=== PATIENT | female | born 1990 | race Two or more races ===

== ENCOUNTER 2019-04-15 11:08 | Inpatient (IN) | payer OTHER ==
[~2019-04-15] VITALS: Ht 160 cm; Wt 105.4 kg
[~2019-04-15 11:08] MED LIST: PREN-93 PO
[2019-04-15 11:27] VITALS: BP 143/95; Ht 160 cm; Wt 105.4 kg
--- NOTE | 2019-04-15 12:38 | TRIAGE ---
OB Triage Datetime Report Generated by CPN: 04/15/2019 12:38 Datetime: 04/15/2019 11:49 Comments: us at bedside Datetime: 04/15/2019 11:12 Stage of : OB Triage Assessment Type: Triage Maternal Assessment Level of Consciousness: Fully Conscious DTR's/Clonus: DTRs 2+; No Clonus Headache: Denies Blurred Vision: Yes (Annotations: SEES KHAN POINTS ) Respiratory Effort: Unlabored; Regular Rhythm; Equal Expansion Breath Sounds, Left: Clear and Equal Breath Sounds, Right: Clear and Equal Nausea/Vomiting: Denies RUQ Epigastric Pain: Denies Lower Extremities Edema: Bilateral Lower Extremities Degree: 3+ Upper Extremities Edema: None Degree: None Facial Edema: None Fall Risk Assessment History of Falling: (0) No Secondary Diagnosis: (0) No Ambulatory Aid: (0) Bedrest/Nurse Assist IV Therapy: (0) No Gait: (0) Normal/Bedrest/Immobile Mental Status: (0) Oriented to Own Ability Fall Score: 0 Fall Risk Score Definition: No Risk: No action required Monitor Mode: External Heart Rate Monitor Mode: External US Pain Assessment Pain Scale: 5 Pain Presence: Intermittent Pain Type: Ache Pain Location: Other (Annotations: PELVIS ) Datetime: 04/15/2019 11:11 Time of Arrival: 04/15/2019 11:05 EGA: 38.1 Arrived By: Ambulatory Arrived From: Dr. Roca Chief Complaint: SENT FROM CLINIC FOR ELEVATD BLOOD PRESSURE Movement: Present Contractions: Denies/Absent Rupture of Membranes: Denies Vaginal Bleeding: None Vaginal Discharge: Denies Recent Sexual Intercouse: Denies Abdominal Trauma: Not Applicable Patient Complaints: Other Time Provider Notified: 04/15/2019 12:30 Provider Notified: DR. ROMERO Initial Plan: EFM, PIH WORK UP Datetime: 12/24/2018 15:10 Stage of : OB Triage Labor Evaluation Frequency: NONE Monitor Mode: External Quality: Mild Resting Tone Candor: Relaxed Heart Rate Monitor Mode: External US (Annotations: FHT'S OBTAINED IN THE 130'S) Vaginal Exam Membrane Status: Intact Vaginal Bleeding: None Datetime: 12/24/2018 14:33 EGA: 22.1 Datetime: 12/24/2018 14:24 Assessment Type: Triage Maternal Assessment Level of Consciousness: Fully Conscious DTR's/Clonus: DTRs 2+; No Clonus Headache: Denies Blurred Vision: No Respiratory Effort: Unlabored; Regular Rhythm; Equal Expansion Breath Sounds, Left: Clear and Equal Breath Sounds, Right: Clear and Equal Nausea/Vomiting: Denies RUQ Epigastric Pain: Denies Lower Extremities Edema: None Degree: None Upper Extremities Edema: None Degree: None Facial Edema: None Fall Risk Assessment History of Falling: (0) No Secondary Diagnosis: (0) No Ambulatory Aid: (0) Bedrest/Nurse Assist IV Therapy: (0) No Gait: (0) Normal/Bedrest/Immobile Mental Status: (0) Oriented to Own Ability Fall Score: 0 Fall Risk Score Definition: No Risk: No action required Datetime: 12/24/2018 14:23 Time of Arrival: 12/24/2018 14:00 EGA: 21.3 Arrived By: Ambulatory Arrived From: Home Chief Complaint: pt. here c/o DIZZINESS, SOB, AND TINGLING OF LLE. Movement: Present Contractions: Denies/Absent Rupture of Membranes: Denies Vaginal Bleeding: None Vaginal Discharge: Denies Recent Sexual Intercouse: Denies Abdominal Trauma: Not Applicable Patient Complaints: None Time Provider Notified: 12/24/2018 14:36 Provider Notified: HEATHER Initial Plan: CVL/SUSHMA Datetime: 12/24/2018 14:20 Monitor Mode: External Heart Rate Monitor Mode: External US Comments: FHT'S OBTAINED IN THE 130'S.
[2019-04-15] MEDS ORDERED: METHYLERGONOVINE 0.2 MG INJ IM PRN (13:00)
[2019-04-15] MEDS ORDERED: CARBOPROST 250 MCG INJ IM PRN (13:00)
[2019-04-15] MEDS ORDERED: OXYTOCIN 30 UNITS/LR 500 ML IV PRN (13:00)
[2019-04-15] MEDS ORDERED: MISOPROSTOL 200 MCG TAB PR PRN (13:00)
[2019-04-15] MEDS ORDERED: OXYTOCIN 30 UNITS/LR 500 ML IV SCH ×2 (13:00)
[2019-04-15] MEDS ORDERED: LIDOCAINE 1% (MPF) 30 ML INJ INJ PRN (13:00)
[2019-04-15] MEDS ORDERED: BUTORPHANOL 2 MG INJ IV PRN (13:00)
[2019-04-15] MEDS: LACTATED RINGER'S 1,000 ML IV SCH ×2 (13:28→18:29)
[2019-04-15] MEDS ORDERED: hydrALAzine 20 MG INJ IV PRN (13:30)
[2019-04-15] MEDS ORDERED: LABETALOL HCL 20MG INJ IV ONE (13:30)
[2019-04-15] MEDS ORDERED: LABETALOL HCL 20MG INJ IV PRN ×2 (13:30)
[2019-04-15] MEDS: MISOPROSTOL 50 MCG CAPSULE PO SCH ×3 (13:55→22:29)
--- NOTE | 2019-04-15 22:58 | HP ---
Date/Time of Note Date/Time of Note DATE: 04/15/19 TIME: 22:56 OB - History Hx of Present Free Text/Dictation 28 YO with IUP at 38 weeks with EDC 04/28/2019 who reported to L&D due to elevated BP and headache. she denies visual changes or RUQ pain. she is admitted for IOL. Ultrasounds: Normal mid trimester US Obstetrical Complications: Gestational Hypertension Medical Complications: None Past Family/Social History * Past Medical, Surgical, Family and Obstetric Histories reviewed from chart. OB Admission Exam Vital Signs Vital Signs Vital Signs Date Temp Pulse Resp B/P (MAP) Pulse Ox O2 O2 Flow FiO2 Time Delivery Rate 04/15/19 98.0 143/95 11:27 (111) Physical Exam HEENT: WNL Heart: Rhythm Normal Lungs: Clear, Equal Abdomen: WNL Extremities: Normal Reflexes: Normal Cervical Dilatation: Fingertip Last 72 hours Lab Results CBC & BMP 04/15/19 11:22 Liver Function Test 04/15/19 11:22 Alanine Aminotransferase (ALT/SGPT) 18 Albumin 3.3 Alkaline Phosphatase 204 H Aspartate Amino Transf (AST/SGOT) 20 Direct Bilirubin 0.00 Total Protein 6.5 OB Assessment/Plan Reason for admission: other (IUP at 38 weeks with Preeclampsia ) Induction Method: per Misoprostol Protocol NANCY ROMERO MD April 15, 2019 22:58
[2019-04-16] MEDS: LACTATED RINGER'S 1,000 ML IV SCH ×3 (02:50→19:16)
[2019-04-16] MEDS: MISOPROSTOL 50 MCG CAPSULE PO SCH ×4 (06:16→14:04)
--- NOTE | 2019-04-16 15:02 | QN ---
Documentation Comment here for IOL for preeclampsia just had 6th dose of Cytotec on my exam she is finger tip and high NANCY ROMERO MD April 16, 2019 15:01
[2019-04-16] MEDS ORDERED: OXYTOCIN 30 UNITS/LR 500 ML IV SCH (18:30)
[2019-04-17] MEDS: LACTATED RINGER'S 1,000 ML IV SCH ×2 (03:20→12:02)
[2019-04-17] MEDS ORDERED: LABETALOL HCL 20MG INJ ONE ×2 (08:39→12:06)
--- NOTE | 2019-04-17 08:48 | QN ---
Documentation Comment NST reassuring AROM: Clear Cervix is 1-2 cm NANCY ROMERO MD April 17, 2019 08:48
--- NOTE | 2019-04-17 10:42 | PREAC ---
Date/Time of Note Date/Time of Note DATE: 04/17/19 TIME: 10:41 Anesthesia Eval and Record Evaluation Time Pre-Procedure Interview DATE: 04/17/19 TIME: 10:41 Age 28 Sex female NPO: 8 hrs Preoperative diagnosis Planned procedure labor epidural Past Medical History Past Medical History: Includes Cardio: HTN GI: Morbid obesity Surgery & Anesthesia Issues No known issue Meds Anticoagulation: No Beta Ewelina within 24 hr: No Reason Beta Ewelina not given: Pt. not on B-Ewelina Reported Medications Vit No.124/Iron/FA ( Vitamin Tablet) 1 Each Tablet, 1 EACH PO DAILY, TAB 12/24/18 Current Medications Lactated Ringer's 1,000 ml @ 125 mls/hr Q8H IV Last administered on 04/17/19at 03:20; Admin Dose 125 MLS/HR; Start 04/15/19 at 12:39 Butorphanol Tartrate (Stadol) 2 mg Q2H PRN IV .PAIN SCALE 6-10; Start 04/15/19 at 13:00 Lidocaine (Xylocaine 1% (Mpf)) 30 ml ONCE PRN INJ .EPISIOTOMY; Start 04/15/19 at 13:00 Oxytocin/Lactated Ringer's 500 ml @ 500 mls/hr ONCE POST IV ; Start 04/15/19 at 13:00 Oxytocin/Lactated Ringer's 500 ml @ 125 mls/hr POST IV ; Start 04/15/19 at 13:00 Oxytocin/Lactated Ringer's 500 ml @ 0 mls/hr ONCE PRN IV .VAGINAL BLEEDING; Start 04/15/19 at 13:00 Methylergonovine Maleate (Methergine) 0.2 mg ONCE PRN IM .VAGINAL BLEEDING; Start 04/15/19 at 13:00 Carboprost Tromethamine (Hemabate) 250 mcg ONCE PRN IM .VAGINAL BLEEDING; Start 04/15/19 at 13:00 Misoprostol (Cytotec) 1,000 mcg ONCE PRN HI .VAGINAL BLEEDING; Start 04/15/19 at 13:00 Misoprostol (Cytotec 50 Mcg Capsule) 50 mcg Q4 PO Last administered on 04/16/19at 14:04; Admin Dose 50 MCG; Start 04/15/19 at 14:00 Oxytocin/Lactated Ringer's 500 ml @ 0 mls/hr FOR INDUCTION IV Last administered on 04/16/19at 20:24; Admin Dose 1 MLS/HR; Start 04/16/19 at 18:30 Meds reviewed: Yes Allergies Coded Allergies: No Known Allergy (Unverified , 12/24/18) Allergies Reviewed: Yes Labs/Studies Labs Reviewed: Reviewed by anesthesiologist Result Diagram: 04/15/19 1122 04/15/19 1122 test: Positive Pre-procedure Exam Last vitals Vital Signs Date Temp Pulse Resp B/P (MAP) Pulse Ox O2 O2 Flow FiO2 Time Delivery Rate 04/15/19 98.0 143/95 11:27 (111) Airway: Adequate mouth opening, Adequate thyromental dist Mallampati: Mallampati II Teeth: Normal Lung: Normal Heart: Normal ASA Physical Status ASA physical status: 2 Emergency: None Planned Anesthetic Neuraxial: Epidural Pre-operative Attestations Prior to commencing anesthesia and surgery, the patient was re-evaluated, there was verification of: *The patient's identity *The results of appropriate recent lab work and preoperative vital signs *The above evaluation not changing prior to induction *Anesthetic plan, risk benefits, alternative and complications discussed with patient/family; questions answered; patient/family understands, accepts and wishes to proceed. JETHRO PALOMO April 17, 2019 10:42
[2019-04-17] MEDS ORDERED: HYDROmorphONE 0.5 MG/0.5 ML SYG IV PRN ×2 (11:00)
[2019-04-17] MEDS ORDERED: DIPHENHYDRAMINE 50 MG INJ IV PRN (11:00)
[2019-04-17] MEDS ORDERED: KETOROLAC 30 MG INJ IV PRN (11:00)
[2019-04-17] MEDS ORDERED: FENTAnyl 2MCG/ML-ROPIV 0.2% 100 ML BAG EPI SCH (11:00)
[2019-04-17] MEDS ORDERED: NALOXONE (0.4 MG/ML) INJ IV PRN (11:00)
[2019-04-17] MEDS ORDERED: ONDANSETRON 4 MG INJ IV PRN ×2 (11:00→17:00)
--- NOTE | 2019-04-17 11:51 | PAC ---
Date/Time of Note Date/Time of Note DATE: 04/17/19 TIME: 11:51 Post-Anesthesia Notes Post-Anesthesia Note Last documented vital signs Vital Signs Date Temp Pulse Resp B/P (MAP) Pulse Ox O2 O2 Flow FiO2 Time Delivery Rate 04/15/19 98.0 143/95 11:27 (111) Activity: WNL Respiratory function: WNL Cardiovascular function: WNL Mental status: Baseline Pain reasonably controlled: Yes Hydration appropriate: Yes Nausea/Vomiting absent: Yes JETHRO PALOMO April 17, 2019 11:51
[2019-04-17] MEDS ORDERED: OXYTOCIN 30 UNITS/LR 500 ML IV SCH (16:40)
--- NOTE | 2019-04-17 16:40 | LDN ---
Date/Time of Note Date/Time of Note DATE: 04/17/19 TIME: 16:37 Delivery Summary I was called to attend the [facility], since attending physician was not available and the patient had significant urge to push. Weeks of Gestation 38.3 weeks Placenta Delivered: Spontaneously Meconium: none Indication for episiotomy N.A Laceration repair: second degree perineal laceration repaired using 3-0 chromic Anesthesia type: Epidural Estimated blood loss: 400 Sponge & Needle done & correct: Yes All needle counts correct: Yes Any foreign bodies felt in the: No Infant Delivery Information Sex Sex: female Apgars 1 Minute: 8 5 Minute: 9 Suctioning Nose & mouth suctioned at hsemar: Yes Delee suction performed: Yes Umbilical Cord Umbilical cord with: 3 Vessels Cord presentations: nuchal cord Nuchal cord present X: 1 Cord Blood was obtained: Yes Mother & Baby Disposition Disposition placenta delviered intact, complete Fundus was firm at the end of the delivery Hemostasis complete Mom & Baby to Maternity; Good: Yes Baby to NICU: No LILLIAN NUGENT MD April 17, 2019 16:40
[2019-04-17] MEDS ORDERED: LANOLIN HPA 1 PKT TOP PRN (17:00)
[2019-04-17] MEDS ORDERED: HYDROCODONE/APAP (5/325) TAB PO PRN (17:00)
[2019-04-17] MEDS ORDERED: OXYTOCIN 30 UNITS/LR 500 ML IV PRN (17:00)
[2019-04-17] MEDS ORDERED: MISOPROSTOL 200 MCG TAB PR PRN (17:00)
[2019-04-17] MEDS ORDERED: DIPHENHYDRAMINE 25 MG CAP PO PRN (17:00)
[2019-04-17] MEDS ORDERED: ACETAMINOPHEN 325 MG TAB PO PRN (17:00)
[2019-04-17] MEDS ORDERED: ZOLPIDEM 5 MG TAB PO PRN (17:00)
[2019-04-17] MEDS ORDERED: WITCH HAZEL/GLYCERIN PAD PR PRN (17:00)
[2019-04-17] MEDS ORDERED: NACL 0.9% 3 ML SYG IV SCH (17:00)
[2019-04-17] MEDS ORDERED: CARBOPROST 250 MCG INJ IM PRN (17:00)
[2019-04-17 18:15] VITALS: BP 127/85; PULSE 72; RESP 18
[2019-04-17 18:45] VITALS: BP 122/88; PULSE 82
[2019-04-17 20:30] VITALS: BP 144/86; PULSE 76; RESP 20
[2019-04-17] MEDS: IBUPROFEN 600 MG TAB PO SCH (20:30)
[2019-04-17] MEDS: SENNA/DOCUSATE NA (8.6MG/50MG) TAB PO SCH (20:30)
[2019-04-18 00:30] VITALS: BP 134/87; PULSE 69; RESP 19
[2019-04-18] MEDS: IBUPROFEN 600 MG TAB PO SCH ×5 (00:42→18:22)
[2019-04-18 04:00] VITALS: BP 129/75; PULSE 76; RESP 20
[2019-04-18 09:00] VITALS: BP 136/81; PULSE 84; RESP 20
[2019-04-18] MEDS: SENNA/DOCUSATE NA (8.6MG/50MG) TAB PO SCH ×2 (09:00→20:54)
[2019-04-18] MEDS ORDERED: BENZOCAINE 20% 56 ML SPRAY TOP PRN (16:30)
--- NOTE | 2019-04-18 16:45 | QN ---
Documentation Comment s/p c/s Subjective: no complaint denies headache, visual changes or RUQ pain Objective: Afebrile, VSS NAD A&O Abdomen: soft, not tender. fundus is firm mild lochia Extremity: 1+ edema bilaterally Assessment: S/p on 04/17/2019 Preeclampsia, but has normal BPs now Recovering Well Plan: monitor BPs NANCY ROMERO MD April 18, 2019 16:45
[2019-04-18 16:58] VITALS: BP 112/72; PULSE 72; RESP 18
[2019-04-18 20:15] VITALS: BP 140/85; PULSE 80; RESP 18
[2019-04-19] MEDS: IBUPROFEN 600 MG TAB PO SCH ×3 (00:29→11:45)
[2019-04-19 03:45] VITALS: BP_SYST 145; BP_SYST 157; BP_DIAS 82; BP_DIAS 91; PULSE 76; RESP 20
[2019-04-19 05:20] VITALS: BP 132/91
[2019-04-19 07:35] VITALS: BP 137/83; PULSE 71; RESP 18
[2019-04-19] MEDS: SENNA/DOCUSATE NA (8.6MG/50MG) TAB PO SCH (09:00)
[2019-04-19] MEDS ORDERED: MEASLES,MUMPS,RUBELLA VACCINE INJ SC* ONE (09:00)
--- NOTE | 2019-04-19 10:29 | DS ---
Date/Time of Note Date/Time of Note DATE: 04/19/19 TIME: 10:27 Obstetrical Discharge Record Final Diagnosis Final Diagnosis: Term delivered Other Final Diagnosis PIH Vaginal Delivery Obstetrical Delivery: Spontaneous, Laceration, Repaired Complications Preg induced Hypertension Augmentation: Yes Induction: Yes Condition on Discharge Physical Assessment Last Vitals: BP 132/91, 136/81, 112/72, 140/85, 157/82, 137/83 Voiding: Yes Bowel Movement: Yes Breast: Filling Fundus: Firm Calf Tenderness: No Patient Condition: Good KERVIN DYER MD Apr 19, 2019 10:29
--- NOTE | 2019-04-19 10:30 | PD.PPDC ---
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
--- NOTE | 2019-04-20 14:27 | DELSUM ---
Delivery Summary A-C Datetime Report Generated by CPN: 04/20/2019 14:27 DELIVERY PERSONNEL Analysis Tester: Darlin Galvin MATERNAL INFORMATION Delivery Anesthesia: Epidural Medications in Delivery: Pitocin 30 units in LR Delivery QBL (ml): 400 Placenta Cultured: No Maternal Complications: Other Other Maternal Complications: Preeclampsia LABOR SUMMARY EDC: 04/28/2019 00:00 No. Babies in Womb: 1 Attempted: No Labor Anesthesia: Epidural LABOR INFORMATION Reason for Induction: Gest. HTN/PreEclam/Eclamp Onset of Labor: 04/17/2019 10:34 Complete Dilatation: 04/17/2019 15:46 Cervical Ripening Agents: Cytotec @ Other Ripening Agents: Pitocin Oxytocin: Induction Group B Beta Strep: Negative Steroids Given: None Reason Steroids Not Administered: Not Applicable MEMBRANES Membranes Rupture Method: Artificial Rupture of Membranes: 04/17/2019 07:44 Length of Rupture (hr): 8.20 Amniotic Fluid Color: Clear Amniotic Fluid Amount: Small Amniotic Fluid Odor: None STAGES OF LABOR Stage 1 hr: 5 Stage 1 min: 12 Stage 2 hr: 0 Stage 2 min: 10 Stage 3 hr: 0 Stage 3 min: 2 Total Time in Labor hr: 5 Total Time in Labor min: 24 VAGINAL DELIVERY Episiotomy: None Laceration Extension: Second Degree Laceration Type: Perineal Laceration Repair: Yes Initial Vag Sponge Count: 10 Final Vag Sponge Count: 10 Initial Vag Sharps Count: 1 Final Vag Sharps Count: 2 Sponge Count Correct: Yes BABY A INFORMATION Delivery Date/Time: 04/17/2019 15:56 Method of Delivery: Vaginal Born in Route : Yes : N/A Forceps: N/A Vacuum Extraction: N/A Shoulder Dystocia : N/A SHOULDER DYSTOCIA BABY A Infant Delivery Date/Time: 04/17/2019 15:56 PRESENTATION/POSITION BABY A Presentation: Cephalic Cephalic Presentation: Vertex Vertex Position: Left Occipital Anterior Breech Presentation: N/A PLACENTA INFORMATION BABY A Placenta Delivery Time : 04/17/2019 15:58 Placenta Method of Delivery: Spontaneous Placenta Status: Delivered SCORES BABY A Heart Rate 1 min: >100 bpm Resp Effort 1 min: Good Cry Reflex Irritability 1 min: Cough/Sneeze/Pulls Away Muscle Tone 1 min: Active Motion Color 1 min: Blue/Pale Resuscitation Effort 1 min: Tactile Stimulation SCORE 1 MIN: 8 Heart Rate 5 min: >100 bpm Resp Effort 5 min: Good Cry Reflex Irritability 5 min: Cough/Sneeze/Pulls Away Muscle Tone 5 min: Active Motion Color 5 min: Body Suffern, Extremit Blue Resuscitation Effort 5 min: Tactile Stimulation SCORE 5 MIN: 9 INFANT INFORMATION BABY A Gestational Age at Delivery: 38.3 Gestational Status: Early Term- 37- 38.6 Weeks Infant Outcome : Liveborn Condition : Stable Sex: Male IDENTIFICATION/MEDS BABY A ID Band Number: [id number] ID Band Location: Right Leg; Left Arm Sensor Applied: Yes Sensor Number: [id number] Sensor Location : Cord Clamp Vitamin K Given : Not Given Erythromycin Given: Not Given WEIGHT/LENGTH BABY A Infant Birthweight (gm): 3025 Weight (lb): 6 Infant Weight (oz): 11 Length (in): 19.00 Length (cm): 48.26 CORD INFORMATION BABY A No. 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
== END 2019-04-19 14:27 | disposition home or self-care (01) | DRG 807 ==
LOC: OBT 11:08 → L-D 11:09 → OBT 12:35 → L-D 12:41 → PP1 04-17 18:06
PROVIDERS: ADMIT Specialist; ATTEND Specialist
PROC: 3E033VJ Introduction of Other Hormone into Peripheral Vein, Percutaneous Approach (ICD-10-PCS; 2019-04-16)
PROC: 10E0XZZ Delivery of Products of Conception, External Approach (ICD-10-PCS; principal; 2019-04-17)
PROC: 0KQM0ZZ Repair Perineum Muscle, Open Approach (ICD-10-PCS; 2019-04-17)
PROC: 10907ZC Drainage of Amniotic Fluid, Therapeutic from Products of Conception, Via Natural or Artificial Opening (ICD-10-PCS; 2019-04-17)
DX: O14.94 Unspecified pre-eclampsia, complicating childbirth (principal); O69.81X0 Labor and delivery complicated by cord around neck, without compression, not applicable or unspecified; O99.214 Obesity complicating childbirth; E66.01 Morbid (severe) obesity due to excess calories; Z37.0 Single live birth; Z3A.38 38 weeks gestation of pregnancy
CPT/HCPCS: 36415; 62322; 76815; 76818; 80053; 81001; 84560; 85014; 85018; 85025; 85384; 85610; 85730; 86592; 86850; 86900; 86901; 87340; G0463; J2405; J2590; J3010; J7120